=== PATIENT | male | born 1970 | race Hispanic/Latino ===

== ENCOUNTER 2016-04-21 20:00 | Emergency (ER) | payer MEDICAID ==
[~2016-04-21] VITALS: Ht 157.5 cm; Wt 96.0 kg
[2016-04-21 20:16] VITALS: BP 105/71; PULSE 70; RESP 16; O2SAT 95
[2016-04-21] MEDS ORDERED: LidocaineVisc 2%:Antacid 1:1 10 mL Syringe PO ONE (20:45)
[2016-04-21 21:36] LABS: BASOPHILS % (AUTO) 0.4 % (0-3); EOSINOPHILS % (AUTO) 0.9 % (0-5); MONOCYTES % (AUTO) 10.5 % (4-12); NEUTROPHILS % (AUTO) 43.5 % (40-74); Platelet Count 171 bil/L (150-400)
--- NOTE | 2016-04-21 21:38 | DRSVH ---
PROCEDURE: X-RAY CHEST ONE VIEW, PORTABLE ([id number]) INDICATIONS: cp, cough, fever TECHNIQUE: One view of the chest was acquired. COMPARISON: [facility], , CHEST 2VW, 05/30/2014, 1:02. FINDINGS: Surgical changes and devices: None. Lungs and pleura: No pleural effusions or pneumothorax. Lungs are clear. Mediastinum: Mediastinal contours appear normal. Heart size is normal. Bones and chest wall: No suspicious bony lesions. Overlying soft tissues appear unremarkable. IMPRESSION: No acute disease Dictated by: Dustin Guzmán M.D. on 04/21/2016 at 21:37 Approved by: Dustin Guzmán M.D. on 04/21/2016 at 21:38
--- NOTE | 2016-04-21 21:43 | ED.REPORT ---
HPI-Chest Pain 40 and Over Date of Service Apr 21, 2016 ED Provider: Pro Gao MD A healthy 45 year old [place]-speaking male presents to the ER accompanied by his complaining of five days of temperature and cold symptoms. He reports chest pain with cough and vocalization, and sore throat exacerbated by cough. Associated symptoms of generalized weakness and fatigue. reports that all others in the household have recently had similar symptoms. Nursing Notes Stated Complaint: STOMACH PAIN Chief Complaint: Chest Pain-Non Cardiac Nature Nursing Notes Reviewed: Yes Allergies: Coded Allergies: No Known Allergies (Verified Allergy, Unknown, 05/29/14) Scheduled PRN Benzonatate (Tessalon Perle) 100 Mg Capsule 100 MG PO TID PRN PRN For Cough Ibuprofen (Ibuprofen) 600 Mg Tablet 600 MG PO QID PRN PRN For Pain General Time Seen by MD: 20:41 Chief Complaint Chest pain, Other (Fever) Hx Obtained From: Patient, Spouse Arrived By: Walk-in Sudden in Onset?: No Onset Occurred: 5 days ago Symptom Duration: Since onset Location: : Substernal Quality: Painful Radiation: : Does not radiate Migration/Movement: Reports: None Severity: Current: Moderate Severity: Maximum: Moderate Associated with: Reports: Cough, non-productive, Fatigue, Fever (Subjective), Weakness Similar Sx Previous: No Past Medical History Past Medical History Healthy Past Surgical History none reported Smoking History Smoker Current Status UNK Social History Alcohol Use: "Social" Drug Use: Meth Ambulatory Status Independent Review of Systems Constitutional: Reports: Fatigue, Fever (Subjective), Malaise, Weakness - generalized Respiratory: Reports: Non-productive cough, Denies: Shortness of breath Cardiovascular: Reports: Chest pain GI: Denies: Abdominal pain, Nausea, Vomiting Complete sys rev & neg: except as marked. Ears / Nose / Throat: Reports: Sore throat Physical Exam Initial Vital Signs Vital Signs (First) Date Time Temp Pulse Resp B/P Pulse Ox O2 Delivery O2 Flow Rate FiO2 04/21/16 20:16 36.7 70 16 105/71 95 Room Air Initial VS: Reviewed Head / Eyes: Atraumatic, Normocephalic Neck: Supple, Non-tender, Full range of motion Extremities: Vascular intact, Neuro intact, No swelling, No tenderness Skin: Warm, Dry, No cyanosis Neurologic: Alert, Oriented, Nonfocal General/Constitutional: Awake, Alert, Well developed, Well nourished Respiratory / Chest: Breath sounds NL, Breath sounds = bilat, No respiratory distress, No rales, No rhonchi, No wheezing, No stridor, No chest tenderness Cardiovascular: Heart rate NL, Regular rhythm, Heart sounds NL, No murmurs, Peripheral circulation NL, Pulses = bilaterally, No gross BP differential Abdomen: Soft, Non-tender, No guarding, No rebound, No distention Interpretation & Diagnostics Lab Results Interpretation Result Diagram: 04/21/16205704/21/162057 Test 04/21/16 20:58 04/21/16 21:23 White Blood Count 5.4th/mm3 (3.8-10.1) Red Blood Count 4.94mil/mm3 (4.40-5.80) Hemoglobin 14.8g/dL (13.8-17.2) Hematocrit 43.0% (41.0-50.0) Mean Corpuscular Volume 87.0fL (81-100) Mean Corpuscular Hemoglobin 30.0pg (27.0-35.0) Mean Corpuscular Hemoglobin Concent 34.4% (32.0-37.0) Red Cell Distribution Width 12.5% (12.3-15.4) Platelet Count 171bil/L (150-400) Neutrophils (%) (Auto) 43.5% (40-74) Lymphocytes (%) (Auto) 44.7% (14-46) Monocytes (%) (Auto) 10.5% (4-12) Eosinophils (%) (Auto) 0.9% (0-5) Basophils (%) (Auto) 0.4% (0-3) Sodium Level 137mEq/L (134-144) Potassium Level 3.4mEq/L (3.5-5.2) Chloride Level 100mEq/L (97-108) Carbon Dioxide Level 21mmol/L (18-29) Blood Urea Nitrogen 13mg/dL (6-24) Creatinine 0.65mg/dL (0.76-1.27) Estimat Glomerular Filtration Rate 142mL/min (>59) Glucose Level 151mg/dL (60-99) Calcium Level 8.3mg/dL (8.5-10.1) Total Bilirubin 0.5mg/dL (0.0-1.2) Aspartate Amino Transf (AST/SGOT) 25U/L (0-50) Alanine Aminotransferase (ALT/SGPT) 21U/L (0-44) Alkaline Phosphatase 100U/L (25-150) Troponin T 0.010ug/L (0.0-0.011) Pro-B-Type Natriuretic Peptide 16.07pg/mL (0-86) Total Protein 7.5g/dL (6.4-8.4) Albumin 4.2g/dL (3.4-5.0) Hold Dunbar Top Tube Received (Received) ECG Interpretation ECG Interpretation: Sinus rhythm, rate 66 Normal axis Normal intervals No ST segment changes No acute T wave abnormalities Abnormal R wave progression. Unchanged from prior ECG 05/30/2014 Time: 21:29 Interpreted by: ED physician X-Ray Chest Interpretation Chest Xray Interpretation: IMPRESSION: No acute disease Dictated by: Dustin Guzmán M.D. on 04/21/2016 at 21:37 Approved by: Dustin Guzmán M.D. on 04/21/2016 at 21:38 View: Portable, 1 view Interpretation / Wet Read by: Interpret - Radiologist Re-Eval/Medical Decision Med Decision/Clinical Course Patient is a 27-year-old male who presents with complaints of cough, upper respiratory infection and chest pain in association with coughing. Here in the emergency department the patient is afebrile stable vital signs and in no apparent distress. EKG was obtained and interpreted by myself as documented above. CXR: Obtained, reviewed and interpreted by myself shows no evidence of acute infiltrates, effusions or pneumothorax. Cardiac and mediastinal silhouette normal. No bony or soft tissue abnormalities. Laboratory studies notable as below: CBC normal CMP normal Troponin negative Patient's cough was treated with Tessalon, Toradol for pain. At this time presentation unconvincing for acute coronary syndrome, pulmonary embolus, pneumonia or pneumothorax. This patient most consistent with muscular chest pain in the setting of upper respiratory infection and coughing. Patient has been prescribed Tessalon and will take ibuprofen additionally. Follow-up and return precautions were reviewed in detail and he was discharged in good condition. Source of Hx: Family Time of Eval: 21:46 Re-Evaluation/Progress Note: Discussed lab and radiology results and plan to discharge. Patient is amenable to the plan. Return precautions given. All other questions addressed. Counseled Regarding: Diagnosis, Lab results, Need for follow-up, When/why to return to ED Discharge & Departure Primary Impression: Cough Additional Impressions: Pharyngitis Pharyngitis/tonsillitis etiology: unspecified etiology Qualified Code: J02.9 - Acute pharyngitis, unspecified Chest pain, musculoskeletal Disposition: Home Discharge Condition All VS Reviewed: Yes Condition: Stable Additional Instructions: Thank you for seeking care at emergency room. It is difficult for us to make definitive diagnoses in the ED but we believe that you are experiencing pharyngitis and cough. Our primary goal today in the ED was to evaluate you for any life-threatening conditions. Your evaluation was reassuring. You will be discharged with a prescription for Tessalon perle. Please take as directed for cough. Take ibuprofen as directed for chest pain. You should follow-up with your primary doctor this week. You should return to the ED immediately if you develop worsening symptoms, difficulty breathing, or any other concerning signs or symptoms. Thank you for letting us partake in your care today. Christina por buscar atencin en la [place] de emergencias. Es difcil para nosotros hacer diagnsticos definitivos en el [place], zuri creemos que usted est experimentando faringitis y tos. Nuestra meta principal hoy en el ED fue evaluarle para cualquier condicin que amenaza la colleen. Gomez evaluacin fue tranquilizadora. Usted ser dado de amauri con otis receta para Tessalon perle. Por favor tome kera indicado para la tos. [place] ibuprofeno segn las indicaciones para el dolor en el pecho. Debe hacer un seguimiento con gomez mdico de cabecera esta semana. Debe regresar inmediatamente al servicio de urgencias si presenta sntomas que empeoran, dificultad para respirar o cualquier otro signo o sntoma. Christina por dejarnos participar en gomez cuidado hoy. Referrals: NOPCP (PCP) Eusebioibe Attestation Portions of this note were transcribed by Dannie Gan. I, Dr. Gao, personally performed the history, physical exam and medical decision-making; I reviewed and confirmed the accuracy of the information in the transcribed note. Signed by: Alysia Gimenez, 04/21/2016 and 22:45 Pro Gao MD Apr 21, 2016 21:43 DANNIE GAN Apr 21, 2016 21:51
[2016-04-21] MEDS ORDERED: BENZ-12 PO (21:49)
[2016-04-21] MEDS ORDERED: IBUP-1827 PO (21:50)
[2016-04-21 22:24] LABS: TROPONIN T 0.01 ug/L (0.0-0.011)
[2016-04-21 22:37] VITALS: BP 121/62; PULSE 66; RESP 24; O2SAT 94
[2016-04-21 23:07] VITALS: BP 121/62; PULSE 66; RESP 24; O2SAT 94
== END 2016-04-21 23:08 | disposition home or self-care (01) ==
LOC: SED 20:00
DX: R07.89 Other chest pain (principal); J02.9 Acute pharyngitis, unspecified; R05 Cough; R53.1 Weakness; R53.83 Other fatigue